=== PATIENT | female | born 1940 | race Caucasian/White ===

== ENCOUNTER 2021-07-29 14:57 | Observation (INO) ==
--- NOTE | 2021-07-29 15:13 | Emergency Department Note ---
Impression & Plan TIA (transient ischemic attack), Hypertension, Nonspecific ST-T wave electrocardiographic changes, Hyponatremia ED Provider Note NAME: ELAN HERNDON AGE: 81 SEX: F : 1940 ARRIVES VIA: Walk-In INFORMANT: Patient, ED PROVIDER(S): Daniel Mohamud MD Chief Complaint: Confusion, high blood pressure HPI: Patient presents due to concern for an episode of confusion. This occurred at approximately 1 PM and lasted approximate 15 to 20 minutes. The patient does have a known history of high blood pressure and did take all of her medications today. No recent changes or missed doses. Patient did drink caffeinated coffee this morning but denies any alcohol or tobacco. The patient denies any increasing stressors. Patient Nuys any nausea vomiting a prior stroke or mini stroke. The patient does relate that she did have an ocular migraine earlier today as well as yesterday. Patient states that that is increased in frequency compared to prior. Patient currently does not have any symptoms at this time and believes she is at baseline. No slurred speech facial droop numbness tingling or focal weakness. is in agreement that she is at her current baseline. Patient's episode of confusion was to where she could not recommend people with whom she was with. ROS: See HPI for pertinent positives and negatives. A total of 10 systems were reviewed and otherwise negative. Past medical history: See below Surgical history: See below Social history: See below Physical Exam: GENERAL: NAD, wearing glasses, wearing a mask, non-toxic. EYE EXAM: Normal conjunctiva. PERRL, no anisocoria and EOM's grossly intact w/o pain. NECK: Supple, no nuchal rigidity, no adenopathy, non-tender. No signs of meningismus. LUNGS: Clear to auscultation. Normal chest wall mechanics. HEART: NSR, no MRG. ABDOMEN: Abdomen soft, non-tender, normo-active bowel sounds, no masses, no rebound or guarding. BACK: No CVA TTP. SKIN: No rashes and no bruising. UPPER EXTREMITIES: Upper extremities are grossly normal. LOWER EXTREMITIES: Grossly normal, no edema. NEURO EXAM: A&O x3, cranial nerves II-XII grossly intact, normal speech, moves all 4 extremities on command w/o issue. Good finger to nose, no drift, no sensory deficits. Differential diagnoses: Infection, dehydration, metabolic abnormality, hypo/hype rglycemia, electrolyte disturbance, anemia, hypoxia, cardiac sources, intracerebral event, toxicologic, neurologic, as well as other pathologies. Course: Patient was seen and evaluated the bedside. Full history physical exam was performed. EKG interpreted by me Normal sinus rhythm, rate 69, normal intervals, normal axis, T wave inversion inferiorly, slight ST depression in the lateral leads. No priors for comparison. Imaging Studies: See Below Cardiac monitoring: An order was placed for continuous cardiac monitoring. The monitor shows a rate of 72 with sinus rhythm. MDM: Patient presented due to concern for episode of confusion and high blood pressure. Blood work was obtained along with CT of the head. Patient blood work unremarkable. The patient CT head is negative. EKG shows some nonspecific ST and T wave changes but no priors for comparison. Patient denies any chest pains or shortness of breath. Given the patient's TIA versus complicated migraine we have the patient would benefit from inpatient treatment observation at this time. I did speak the on-call hospitalist. Patient was admitted to the medicine service. I did speak with Dr. Stevens. Past Med/Surg History Medical History (Updated 07/29/21 @ 16:51 by Daniel Mohamud MD) H/O: HTN (hypertension) Ocular migraine Surgical History (Updated 07/29/21 @ 16:51 by Daniel Mohamud MD) No pertinent past surgical history Social History Smoking Status: Never smoker Preferred Language: Romanian Feels Safe at Home: Yes Allergies Allergies Allergy/AdvReac Type Severity Reaction Status Date / Time amlodipine Allergy Severe throat Unverified 07/29/21 16:38 swells methylprednisolone Allergy Intermediate itching Unverified 07/29/21 16:36 rifampin Allergy Intermediate Rash Unverified 07/29/21 16:38 Results & Data (ED) Vital Signs Vital Signs - 24 hr 07/29/21 15:05 07/29/21 16:00 Temperature 36.3 C L Temperature Source Temporal Artery Scan Pulse Rate 72 Pulse Rate [Apical] 68 Respiratory Rate 18 16 Respiratory Effort / Characteristics Non-Labored Spontaneous Respiratory Depth Normal Blood Pressure 224/114 H Blood Pressure [Left Arm] 178/120 H Blood Pressure Mean 150 Blood Pressure Mean [Left Arm] 139 Blood Pressure Position Sitting Pulse Oximetry 98 98 Oxygen Delivery Method Room Air Room Air Sepsis Recent Fever Within 48 Hours No Sepsis New/Unexplained Change in Mental Status No Sepsis Action Taken by Nursing No Action Required Home Medications Current Medication List: was personally reviewed by me Laboratory Data Attestation: I reviewed the patient's lab results. Result diagrams: 07/29/21 15:24 07/29/21 15:24 Lab Results 07/29/21 07/29/21 07/29/21 Range/Units 15:24 15:24 15:45 WBC 7.75 (4.8-10.8) K/uL RBC 4.53 (4.2-5.4) M/uL Hgb 14.0 (12.0-16.0) g/dL Hct 40.6 (37-47) % MCV 89.6 (80-100) fL MCH 30.9 (25-34) pg MCHC 34.5 (32-36) g/dL RDW Std Deviation 42.4 (36.4-46.3) fL RDW Coeff of Laura 13.0 (11.5-14.5) % Plt Count 337 (130-400) K/uL MPV 9.2 (7.4-10.4) fL Immature Gran % (Auto) 0.3 % Neut % (Auto) 72.1 % Lymph % (Auto) 18.2 % [place] % (Auto) 7.4 % Eos % (Auto) 1.4 % Baso % (Auto) 0.6 % Neut # (Auto) 5.59 (1.4-6.5) K/uL Lymph # (Auto) 1.41 (1.2-3.4) K/uL [place] # (Auto) 0.57 (0.11-0.59) K/uL Eos # (Auto) 0.11 (0-0.5) K/uL Baso # (Auto) 0.05 (0-0.2) K/uL Immature Gran # (Auto) 0.02 (0.00-0.02) K/uL Sodium 129 L (136-145) mmol/L Potassium 3.8 (3.5-5.1) mmol/L Chloride 95 L (98-107) mmol/L Carbon Dioxide 25 (21-32) mmol/L Anion Gap 9 (3-11) BUN 17 (6-23) mg/dl Creatinine 0.76 (0.6-1.2) mg/dl Est Cr Clr Drug Dosing 56.7 ml/min Est GFR ( Amer) 85.9 ml/min Est GFR (Non-Af Amer) 74.1 ml/min BUN/Creatinine Ratio 22.4 H (10-20) Glucose 114 H (70-99(Fasting)) mg/dl Calcium 9.4 (8.5-10.1) mg/dl Total Bilirubin 0.6 (0.2-1.0) mg/dl AST 21 (13-39) U/L ALT 22 (7-52) U/L Alkaline Phosphatase 66 (34-104) U/L Troponin I High Sens 4.5 (0-14) pg/ml Total Protein 7.3 (6.0-8.3) gm/dl Albumin 4.5 (3.4-5.0) gm/dl Globulin 2.8 (2.5-4.0) gm/dl Albumin/Globulin Ratio 1.6 (0.9-2) SARS-CoV-2, RNA, NAAT NEGATIVE (NEGATIVE) Imaging Data Radiologist's Impression: Chest X-Ray 07/29/21 15:24 XR chest 1V portable CLINICAL HISTORY: Hypertension. COMPARISON STUDY: No previous studies for comparison. FINDINGS: Lung volumes are at the lower limits of normal. There is no pneumothorax. There are suspected trace bilateral pleural fusions. Mild cardiomegaly is noted. There is pulmonary vascular congestion without overt pulmonary edema. No consolidation to suggest pneumonia. IMPRESSION: 1. Mild cardiomegaly. Pulmonary vascular congestion without overt pulmonary edema. 2. Suspected trace bilateral pleural effusions. ACT 112: Negative or not required by law. Electronically signed by: Chivo Jimenes M.D. 07/29/2021 4:[address] 07/29/21 15:[address] DOSE: 537.48 mGy.cm HISTORY: Hypertension, confusion TECHNIQUE: Multiaxial CT images of the head were performed without the use of intravenous contrast. Automated exposure control was utilized for this study. A dose lowering technique was utilized adhering to the principles of ALARA. Comparison: None. Findings: The paranasal sinuses and mastoid air cells are clear. The calvarium and skull base are intact. There is no mass, hematoma, midline shift, acute infarct. White matter hypodensity is nonspecific but suggestive of microvascular ischemic change. The ventricles and sulci demonstrate mild age-related in volutional changes. 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 Impression: No acute intracranial abnormality. Atrophy and microvascular ischemic changes. ACT 112: Negative or not required by law. Electronically signed by: Martínez Ybarra M.D. 07/29/2021 4:04 PM Discharge Plan Visit Data Chief Complaint: Hypertension Stated Complaint: HIGH BLOOD PRESSURE, CONFUSION ED Provider: Daniel Mohamud Discharge Problem: TIA (transient ischemic attack), Hypertension, Nonspecific ST-T wave electrocardiographic changes, Hyponatremia Forms Stand Alone Forms: My [facility] Referrals Referrals: PCP,NO [Primary Care Provider] -
[2021-07-29 15:58] LABS: Basophils # (auto) 0.05 K/uL (0-0.2); Basophils % (auto) 0.6 %; Eosinophils # (auto) 0.11 K/uL (0-0.5); Eosinophils % (auto) 1.4 %; Hematocrit (blood only) 40.6 % (37-47); Immature Granulocytes # (auto) 0.02 K/uL (0.00-0.02); Immature Granulocytes % (auto) 0.3 %; Lymphocytes # (auto) 1.41 K/uL (1.2-3.4); Lymphocytes % (auto) 18.2 %; Mean Corpuscular Hemoglobin 30.9 pg (25-34); Mean Corpuscular Hgb Conc 34.5 g/dL (32-36); Mean Corpuscular Volume 89.6 fL (80-100); Mean Platelet Volume 9.2 fL (7.4-10.4); Monocytes # (auto) 0.57 K/uL (0.11-0.59); Monocytes % (auto) 7.4 %; Neutrophils # (auto) 5.59 K/uL (1.4-6.5); Neutrophils % (auto) 72.1 %; Platelet Count 337 K/uL (130-400); RDW Standard Deviation 42.4 fL (36.4-46.3); Red Blood Count 4.53 M/uL (4.2-5.4); White Blood Count 7.75 K/uL (4.8-10.8)
--- NOTE | 2021-07-29 16:05 | XRay Report ---
XR chest 1V portable CLINICAL HISTORY: Hypertension. COMPARISON STUDY: No previous studies for comparison. FINDINGS: Lung volumes are at the lower limits of normal. There is no pneumothorax. There are suspect ed trace bilateral pleural fusions. Mild cardiomegaly is noted. There is pulmonary vascular congestio n without overt pulmonary edema. No consolidation to suggest pneumonia. IMPRESSION: 1. Mild cardiomegaly. Pulmonary vascular congestion without overt pulmonary edema. 2. Suspected trace bilateral pleural effusions. ACT 112: Negative or not required by law. Electronically signed by: Chivo Jimenes M.D. 07/29/2021 4:04 PM
--- NOTE | 2021-07-29 16:06 | CT Scan Report ---
HEAD CT NONCONTRAST CT DOSE: 537.48 mGy.cm HISTORY: Hypertension, confusion TECHNIQUE: Multiaxial CT images of the head were performed without the use of intravenous contrast. A utomated exposure control was utilized for this study. A dose lowering technique was utilized adheri ng to the principles of ALARA. Comparison: None. Findings: The paranasal sinuses and mastoid air cells are clear. The calvarium and skull base are int act. There is no mass, hematoma, midline shift, acute infarct. White matter hypodensity is nonspecifi c but suggestive of microvascular ischemic change. The ventricles and sulci demonstrate mild age-rela siri involutional changes. 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 Impression: No acute intracranial abnormality. Atrophy and microvascular ischemic changes. ACT 112: Negative or not required by law. Electronically signed by: Martínez Ybarra M.D. 07/29/2021 4:04 PM
[2021-07-29 16:14] LABS: Troponin I High Sensitivity 4.5 pg/ml (0-14)
[2021-07-29 16:17] LABS: Albumin Globulin Ratio 1.6 (0.9-2); Albumin Level 4.5 gm/dl (3.4-5.0); BUN Creatinine Ratio 22.4 (10-20); Bilirubin,Total 0.6 mg/dl (0.2-1.0); Calcium 9.4 mg/dl (8.5-10.1); Creatinine Clr Calc Pharmacy 56.7 ml/min; Est GFR (African American) 85.9 ml/min; Est GFR (Non-African American) 74.1 ml/min; Globulin 2.8 gm/dl (2.5-4.0); Potassium 3.8 mmol/L (3.5-5.1); Total Protein 7.3 gm/dl (6.0-8.3)
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
[2021-07-29] MEDS ORDERED: MAGNESIUM HYDROXIDE SUSP 30 ML UDC PO PRN (19:39)
[2021-07-29] MEDS ORDERED: oxyCODONE HCL IR 5 MG TAB (IMMEDIATE RELEASE) PO PRN (19:39)
[2021-07-29] MEDS ORDERED: ONDANSETRON INJ 2 MG/ML 2 ML VIAL IV PRN (19:39)
[2021-07-29] MEDS ORDERED: ALUMINUM/MAGNESIUM SUSP 30 ML UDC PO PRN (19:39)
[2021-07-29] MEDS ORDERED: POLYETHYLENE (MIRALAX) 17 GM PACK PO PRN (19:39)
[2021-07-29] MEDS ORDERED: hydrALAZINE HCL 20 MG/ML VIAL IV ONE (20:00)
[2021-07-29] MEDS ORDERED: ONDANSETRON 4 MG OD TAB PO PRN (20:02)
[2021-07-29] MEDS ORDERED: ENOXAPARIN INJ 40 MG/0.4 ML SYR SQ SCH (21:00)
[2021-07-29] MEDS: ACETAMINOPHEN 325 MG TAB PO SCH (21:53)
[2021-07-29] MEDS: LOSARTAN POTASSIUM 50 MG TAB PO SCH (21:54)
[2021-07-29] MEDS: GABAPENTIN 100 MG CAP PO SCH (21:54)
[2021-07-29] MEDS: carvediloL 12.5 MG TAB PO SCH (21:55)
[2021-07-29] MEDS: cloNIDine HCL 0.1 MG TAB PO SCH (21:55)
[2021-07-30] MEDS: ACETAMINOPHEN 325 MG TAB PO SCH ×2 (05:37→15:15)
[2021-07-30 07:07] LABS: BUN Creatinine Ratio 18.8 (10-20); Calcium 9.5 mg/dl (8.5-10.1); Est GFR (African American) 80.7 ml/min; Est GFR (Non-African American) 69.6 ml/min; Potassium 3.6 mmol/L (3.5-5.1)
--- NOTE | 2021-07-30 07:37 | Ultrasound Report ---
DOPPLER ULTRASOUND OF THE RENAL ARTERIES CLINICAL HISTORY: Refractory hypertension. COMPARISON STUDY: No priors TECHNIQUE: Doppler sonography of the renal arteries was performed to assess renal artery stenosis. Im ages are reviewed in the transverse and longitudinal planes. FINDINGS: The kidneys demonstrate mild cortical atrophy. Echotexture is normal. The right kidney measures 9.4 c m in length and the left kidney measures 10.5 cm in length. There is no hydronephrosis. Resistive indices were not performed. Intrarenal arterial waveforms are normal with brisk upstrokes. The right renal arterial waveform is normal, and velocities within the right renal artery measure up to 108 cm/sec. The right renal vein is patent. Resistive indices were not performed. Intrarenal arterial waveforms are normal with brisk upstrokes. The left renal arterial waveform is normal, and velocities within the left renal artery measure up t o 63 cm/sec. The left renal vein is patent. The abdominal aorta is patent. Velocities within the abdominal aorta measure up to 91 cm/s. IMPRESSION: There are no elevated velocities within the renal arteries to suggest renal artery stenos is. ACT 112: Negative or not required by law. Electronically signed by: Cam Gonzalez M.D. 07/30/2021 7:36 AM
[2021-07-30] MEDS: cloNIDine HCL 0.1 MG TAB PO SCH (07:59)
[2021-07-30] MEDS: GABAPENTIN 100 MG CAP PO SCH (08:00)
[2021-07-30] MEDS: carvediloL 12.5 MG TAB PO SCH (08:01)
[2021-07-30] MEDS: LOSARTAN POTASSIUM 50 MG TAB PO SCH (08:01)
[2021-07-30] MEDS ORDERED: NON-FORMULARY MEDICATION (Fish,Bora,Flax Oils-Om3,6,9no1 [Omega 3-6-9] 1,200 mg Capsule) PO SCH (09:00)
[2021-07-30] MEDS ORDERED: PREMARIN VAG CRM 14 APPLN/30 GM TUBE PV SCH (09:00)
[2021-07-30] MEDS ORDERED: PANTETHINE PO SCH (09:00)
[2021-07-30] MEDS ORDERED: MULTIVITAMIN TAB PO SCH (09:00)
[2021-07-30] MEDS ORDERED: MAGNESIUM AMINO ACID CHELATE PO SCH (09:00)
[2021-07-30] MEDS ORDERED: NON-FORMULARY MEDICATION (Coenzyme Q10 [Co Q-10] 10 mg Capsule) PO SCH (09:00)
[2021-07-30] MEDS ORDERED: FLUTICASONE PROPIONATE NA SPR 16 GM BTL NAE SCH (09:00)
[2021-07-30] MEDS ORDERED: LORATADINE 10 MG TAB PO SCH (09:00)
[2021-07-30] MEDS ORDERED: [UNRECOGNIZED DRUG - OTHER] PO SCH (09:00)
[2021-07-30] MEDS ORDERED: hydroCHLOROthiazide 25 MG TAB PO SCH (09:00)
[2021-07-30] MEDS ORDERED: PRAVASTATIN SOD 40 MG TAB PO SCH (09:00)
--- NOTE | 2021-07-30 16:03 | Electrocardiogram Report ---
Test Reason : Blood Pressure : / mmHG Vent. Rate : 069 BPM Atrial Rate : 069 BPM P-R Int : 154 ms QRS Dur : 090 ms QT Int : 430 ms P-R-T Axes : 027 017 008 degrees QTc Int : 460 ms Normal sinus rhythm Left atrial enlargement Diffuse Minor Nonspecific ST abnormality Abnormal ECG No previous ECGs available Confirmed by Hakeem Lira ([id number]) on 07/30/2021 4:02:46 PM Referred By: REFERRED SELF Confirmed By:Hakeem Lira
--- NOTE | 2021-07-30 17:53 | Discharge Summary ---
Date of Service July 30, 2021 Admission HPI Per Admitting Provider norma 81yo F most of her medical care in the [place] area but they now spend about half the year in a [place] near [facility]. was recovering from broken fibula (sustained in march) and doing well overall. no new stressors. 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 head felt a little vaguely "off" with the one today - laid down to take a nap. when she got up she was more confused - notes that she didn't recognize people she had known for years, just overall confused. he noted NO asymmetry/facial droop etc and she does not r ecall having had focal /unilateral numbness or weakness in any way. 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 symptoms improved spontaneously and now other than feeling vaguely "off" in the head she feels back to normal/ notes she seems like her normal self. follows w PCP and hypertension specialist in [place]. does not recall having renal US, BP specific labwork other than following creatinine. notes that she's been on multiple meds for quite some time. thinks low sodium is not new - believes she used to be on a higher dose of HCTZ and was reduced due to sodium. med hx refractory HTN, DJD. has had several surgeries, older family members had heart disease. nonsmoker. no drugs, no significant EtOH. Admission Exam Per Admitting Provider Physical Exam: gen aaox3 norma nad heent nc at mmm cardio reg no r/m/g lungs cta b/l no rrw good effort abd soft nd nt no masses or organomegaly ext no c/c/e no calf tenderness skin no rashes no pallor or icterus msk visible joint hypertrophy in hands mental good recent and remote recall normal mood and affect good judgement and insight. Principal Diagnosis Hypertensive crisis Discharge Exam Constitutional WD/WN, vitals as above Eyes PERRL, conjunctivae normal, anicteric sclerae Respiratory normal respiratory effort, lungs clear to auscultation Cardiovascular RRR, no murmur, no edema Discharge Data Allergies Allergy/AdvReac Type Severity Reaction Status Date / Time amlodipine Allergy Severe throat Unverified 07/29/21 16:38 swells methylprednisolone Allergy Intermediate itching Unverified 07/29/21 16:36 rifampin Allergy Intermediate Rash Unverified 07/29/21 16:38 Consultations 07/29/21 16:33 ED Decision to Admit Stat Ordered Studies 07/29/21 15:24 CT head/brain wo con Stat Impression: No acute intracranial abnormality. Atrophy and microvascular ischemic changes. 07/29/21 19:39 US duplex renal artery Routine IMPRESSION: There are no elevated velocities within the renal arteries to suggest renal artery stenosis. Hospital Course (1) Hypertensive crisis: (2) Hypertension: (3) Hyponatremia: (4) Discharge planning issues: Siomara is a 81 year old female w/ PmHx of HTN, ocular migraine who was admitted for hypertensive crisis and hyponatremia. Hypertensive crisis/HTN: Hypertensive encephalopathy: -Presented to hospital w/ BP 224/114. -Increased Carvedilol dosage to 12.5mg BID. -Increased Clonidine dosage to 0.2mg BID. -Patient's BP normalized on new medication dosages. -Had one BP of 86/52 3 hours post med administration. Came up to 112/62. -Sent home with new medication modifications. -Instructed patient to continue home blood pressure monitoring, follow up with PCP in 1 week. -Told patient to decrease carvedilol dose back to original 6.25mg if feeling lightheaded or dizzy. -mentation clear on discharge -discussed incorporation of mindfulness to help improve BP fluctuations possibly sec to stress. Hyponatremia: -Na 129 on arrival. -Repleted with fluids. -136 after repletion. -Most likely due to HCTZ medication. Discharge planning: -Patient lives half of the year in [place], half of the year in [facility]. -Told patient to follow up with one of the resident providers at [facility] or her home PCP if she goes back to [place] within the next week. Total Time Total Time Spent Total Time Spent (In Minutes): Please see attending attestation. Discharge Plan Discharge Items Patient Disposition: Home - Self-Care Reason For Visit: HIGH BLOOD PRESSURE, CONFUSION Discharge Diagnosis: Hypertensive Crisis Activity: Per Instructions section Non-emergency contact: Primary Care Provider Call non-emergency contact if: your symptoms worsen, your pain is worsening and your temperature is above 101 Follow-up/Referrals: Juan Anthony DO [Resident] - PCP,NO [Primary Care Provider] - Diet: Regular Addtl Attending Provider Instructions: A discharge summary will be sent to your primary care physician to ensure continuity of care. You came into the hospital for high blood pressure causing an episode of confusion. When you entered the hospital your blood pressure was found to be 224/114. During your stay your home medications of carvedilol and clonidine were adjusted. Your carvedilol was increased from your usual dose up to 12.5mg twice a day. Your clonidine was increased from 0.1mg twice a day up to 0.2mg twice a day. After these adjustments to your BP medications your blood pressure came back down to within a normal range. You remained symptom free without any headaches, changes in vision, lightheadedness, or dizziness while on the new medication regimen. We will continue you on this new regimen until you are seen by a primary care physician. They may adjust the medications based on what home blood pressure and office readings may come about. While at home on the new blood pressure regimen please take your blood pressures at home twice a day making sure you are seated with feet flat on the floor and without any movement or talking for 5 minutes before the blood pressure is read. If you start to experience any lighteheadedness or dizziness with the new medications at home please go back to your old dosing of medications and follow up with this at the primary care visit. Follow-up: * You should be seen by your primary physician within the next week. Please check your insurance for where this may be covered, either at the [facility], [facility], or only at your original PCP office. Please follow up for a blood pressure check at that time and for potential adjustments to your medication regimen. Medications: Your medication list has been reviewed and reconciled upon discharge to ensure accuracy and continuity of care. An updated list of all your medications is included with your hospital discharge paperwork. Please review this list closely, and make note of any changes. * Your carvedilol will be increased to 12.5mg twice a day. * Your clonidine will be increased to 0.2mg twice a day. Take your medications as instructed; do not skip a dose of your medicines. Make sure all of your doctors know every medicine you are taking (including [id number] medicines, vitamins, and supplements). let your primary care provider know before taking any new medicines because some of these may interact with your current medications, or may make your symptoms worse. CONTACT YOUR PRIMARY CARE PROVIDER if you experience any of the following: * Fevers or shaking chills * Shortness of breath not relieved by inhalers, fainting * Sudden abdominal distension not relieved by catheterization. * Difficulty following your treatment plan, or difficulty taking medications CALL 911 OR GO TO THE EMERGENCY DEPARTMENT if you experience any of the following: * Sudden, severe abdominal pain or nausea/vomiting * Severe chest pain, or chest pain that radiates (moves) to your jaw or arm * Sudden, severe shortness of breath or difficulty breathing It was was our pleasure taking care of you here at [facility] . Thank you for allowing us to participate in your care. Pending Studies at Discharge: No Stand-Alone Forms: My [facility] [address], Smoking Cessation Medications and DC Order Prescriptions: New clonidine HCl 0.1 mg Tablet 0.2 mg PO BID 15 Days Qty: 60 RF: 0 Continued multivitamin Tablet 1 tab PO DAILY RF: 0 losartan 50 mg tablet 50 mg PO BID RF: 0 carvedilol 12.5 mg tablet 12.5 mg PO BID RF: 0 pravastatin 40 mg tablet 40 mg PO DAILY RF: 0 ondansetron HCl 4 mg tablet 4 mg PO DIRECTED PRN (Reason: Nausea) RF: 0 coenzyme Q10 [Co Q-10] 10 mg Capsule 10 mg PO DAILY RF: 0 acetaminophen [Tylenol Arthritis Pain] 650 mg Tablet Extended Release 650 mg PO Q8H RF: 0 Premarin 0.625 mg/gram Cream 0.625 mg VAGINAL DAILY RF: 0 hydrochlorothiazide 25 mg tablet 25 mg PO QAM RF: 0 gabapentin 100 mg capsule 100 mg PO BID RF: 0 fluticasone propionate 50 mcg/actuation spray,suspension 2 spray INTRANASAL DAILY RF: 0 loratadine 10 mg Tablet 10 mg PO DAILY RF: 0 oxycodone 5 mg tablet 5 mg PO DIRECTED PRN (Reason: Pain) RF: 0 magnesium amino acid chelate 100 mg Tablet 0 mg PO DAILY RF: 0 [place] 3-6-9 1,200 mg Capsule 1 cap PO DAILY RF: 0 pantethine 300 mg Tablet Extended Release 300 mg PO DAILY RF: 0 Garlic-Lecithin 1 dose PO DAILY RF: 0 Discontinued clonidine HCl 0.1 mg tablet 0.1 mg PO BID RF: 0 Discharge Orders: Discharge Order (Routine); Ordered 07/30/21 Ordered By: Juan Anthony Admission Data Admit Date/Time: 07/29/21 17:30 Attending Provider: Vida Campos Admit Provider: Santos Stevens Primary Care Provider: PCP,NO Other Providers: Santos Stevens Other Interventions: Discharge Summary Assessment (RN) Last Done: 07/30/21 15:17 Supervising Physician Co-Signing Physician Notes Resident Physician Supervision Note: I independently interviewed and examined the patient and verified the jordan h istory and physical, reviewed labs and image studies and agree with resident Dr. Anthony findings and care plan. Resident Activity Tracking Resident Involvement: Resident Care Provided Care Provided: Adult Hospital Medicine
[2021-08-05 09:12] LABS: Renin Activity 0.23 ng/mL/h (0.25-5.82)
== END 2021-07-30 16:02 | disposition home or self-care (01) | DRG 305 ==
LOC: ED 14:57 → SUATTDRO 17:30 → EDINP 17:30 → INTOOBSV 17:30 → 2N 20:43